=== PATIENT | female | born 1955 | race Caucasian/White ===

== ENCOUNTER 2017-10-27 12:24 | Inpatient (IN) | payer MEDICAID ==
[~2017-10-27] VITALS: Ht 165.1 cm; Wt 61.2 kg
--- NOTE | 2017-10-27 14:10 | NUR ---
MS RN OPENING NOTES PATIENT ARRIVED TO THE UNIT IN NO APPARENT DISTRESS. BEDSIDE RAILS ARE UPX2. BED IS LOCKED AND LOWERED. VITAL SIGNS ARE WNL. CALL LIGHT IS WITHIN REACH. ID BAND WAS PLACED. IV IS INTACT AND PATENT. MED RECON NURSE WAS CALLED TO THE FLOOR. MYRIAM MAN WAS INFORMED THAT PATIENT IS IN THE UNIT. WILL CONTINUE TO MONITOR.
--- NOTE | 2017-10-27 14:20 | NUR ---
NOTIFIED MYRIAM MAN THAT PATIENT HAS ARRIVED TO THE UNIT. MYRIAM WILL SEE THE PATIENT.
[2017-10-27] MEDS ORDERED: FURO20TA4 PO (14:31)
[2017-10-27] MEDS ORDERED: ATOR40TA PO (14:31)
[2017-10-27] MEDS ORDERED: AMLO10TA2 PO (14:31)
[2017-10-27] MEDS ORDERED: INSU100I26 SQ (14:31)
[2017-10-27] MEDS ORDERED: LISI-603 PO (14:31)
[2017-10-27] MEDS ORDERED: ASPI-1152 PO (14:31)
[2017-10-27] MEDS ORDERED: Z GUARD REMEDY 2 OZ OINT TP PRN (15:30)
[2017-10-27] MEDS ORDERED: MORPHINE SULFATE INJ 4 MG/ML DISP.SYRIN IV PRN (15:30)
[2017-10-27] MEDS ORDERED: MAG HYDROX/AL HYDROX/SIMETH 30 ML UDC PO PRN (15:30)
[2017-10-27] MEDS ORDERED: ACETAMINOPHEN 325 MG TABLET PO PRN (15:30)
[2017-10-27] MEDS ORDERED: MAGNESIUM HYDROXIDE 30 ML UDC PO PRN (15:30)
[2017-10-27] MEDS ORDERED: NITROGLYCERIN 0.4 MG/TAB BOTTLE SL PRN (15:30)
[2017-10-27] MEDS ORDERED: DEXTROSE 50%-WATER 50 ML DISP.SYRIN IV PRN (15:30)
[2017-10-27] MEDS ORDERED: ONDANSETRON HCL/PF 4 MG/2 ML VIAL IVP PRN (15:30)
[2017-10-27 16:00] VITALS: BP 142/65
[2017-10-27 16:55] LABS: BASOPHILS # (AUTO) 0.1 /CMM (0.0-0.2); BASOPHILS % (AUTO) 0.9 % (0.0-2.0); EOSINOPHILS # (AUTO) 0.7 /CMM (0.0-0.7); EOSINOPHILS % (AUTO) 12.6 % (0.0-6.0); HEMATOCRIT 22 % (33-45); HEMOGLOBIN 7.4 g/dL (11.5-14.8); LYMPHOCYTES # (AUTO) 1.4 /CMM (0.8-4.8); LYMPHOCYTES % (AUTO) 23.1 % (20.0-44.0); MEAN CORPUSCULAR HEMOGLOBIN 32 PG (26.0-33.0); MEAN CORPUSCULAR HGB CONC 33 g/dl (31.0-36.0); MEAN CORPUSCULAR VOLUME 95 fL (82-100); MONOCYTES # (AUTO) 0.5 /CMM (0.1-1.30); NEUTROPHILS # (AUTO) 3.2 /CMM (1.8-8.9); NEUTROPHILS % (AUTO) 55.4 % (43.0-81.0); PLATELET COUNT (AUTO) 219 /CMM (150-450); RDW COEFFICIENT OF VARIATION 12.9 (11.5-15.0); RED BLOOD CELL COUNT(AUTO) 2.32 MIL/uL (4.0-5.2); WHITE BLOOD COUNT (AUTO) 5.9 K/uL (4.3-11.0)
[2017-10-27 17:13] LABS: CALCIUM, SERUM 8.7 mg/dL (8.5-10.1); CARBON DIOXIDE 21 mmol/L (21-32); CHLORIDE 108 mmol/L (98-107); CREATININE 2.3 mg/dL (0.6-1.3); GLUCOSE 140 mg/dL (74-106); POTASSIUM 4.5 mmol/L (3.5-5.1); SODIUM SERUM 140 mmol/L (136-145); UREA NITROGEN, BLOOD 37 mg/dL (7-18)
[2017-10-27 17:18] LABS: ALANINE AMINOTRANSFERASE 44 U/L (12-78); ALKALINE PHOSPHATASE 157 U/L (46-116); ASPARTATE AMINOTRANSFERASE 18 U/L (15-37); BILIRUBIN,TOTAL 0.4 mg/dL (0.2-1.0); MAGNESIUM 2.5 mg/dL (1.8-2.4); PHOSPHORUS 4.8 mg/dL (2.5-4.9); TOTAL PROTEIN, SERUM 6.7 g/dL (6.4-8.2)
[2017-10-27 17:20] LABS: TROPONIN I < 0.017 ng/mL (0.00-0.056)
[2017-10-27 17:25] LABS: CHOLESTEROL 156 mg/dL (<200); HDL CHOLESTEROL 64 mg/dL (40-60); LDL 63 mg/dL (0-99); THYROID STIMULATING HORMONE 3.288 uIU/mL (0.358-3.74); TRIGLYCERIDES 154 mg/dL (30-150)
[2017-10-27] MEDS: CEFTRIAXONE 1 G in IV NS 0.9% 50 ML IV SCH (17:33)
[2017-10-27] MEDS: BLOOD SUGAR DIAGNOSTIC 1 EACH STRIP IN SCH ×2 (17:42→21:32)
[2017-10-27] MEDS: INSULIN REGULAR, HUMAN 100 UNIT/ML 3 ML VIAL SQ PRN (17:44)
[2017-10-27] MEDS: AZITHROMYCIN 500 MG in IV D5W 250 ML IV SCH (18:22)
[2017-10-27] MEDS: HYDROCODONE/APAP 5/325MG 1 EACH TABLET PO PRN (18:28)
[2017-10-27 18:36] LABS: BAND % (MANUAL) 1 % (0.0-5.0); EOSINOPHILS % (MANUAL) 11 % (0-4); LYMPHOCYTES % (MANUAL) 17 % (16-48); MONOCYTES % (MANUAL) 11 % (0-11.0); NEUTROPHILS % (MANUAL) 59 (42-76); REACTIVE LYMPHOCYTES 1 % (0-0)
--- NOTE | 2017-10-27 18:37 | NUR ---
MS RN CLOSING NOTES PATIENT IS ALERT AND ORIENTED X4. IN NO APPARENT DISTRESS. BEDSIDE RAILS ARE UPX2. BED IS LOCKED AND LOWERED. CALL LIGHT IS WITHIN REACH. ALL NEEDS WERE MET. WILL ENDORSE CARE TO PET RESORT CONCIERGE NURSE FOR TIFFANY.
--- NOTE | 2017-10-27 19:30 | NUR ---
RN OPEN NOTES RECEIVED PATIENT RESTING IN BED, EASILY AROUSABLE. A/O X4. NO SIGNS OF DISTRESS OR DISCOMFORT. BREATHING EVEN AND UNLABORED. ON 2LPM O2 VIA NC. ON TELE MONITORING WITH SR 81 NOTED. IV ACCESS IN L HAND, PATENT AND INTACT, NO SIGNS OF REDNESS OR INFILTRATION. HAS F/C INTACT, WITH CLEAR YELLOW FLUID NOTED. BED IN LOW LOCKED POSITION WITH SIDE RAILS X2. CALL LIGHT WITHIN REACH. WILL CONTINUE TO MONITOR.
[2017-10-27 20:00] VITALS: BP 126/70
[2017-10-27] MEDS: ATORVASTATIN 40 MG TABLET PO SCH (21:33)
[2017-10-27] MEDS: INSULIN GLARGINE, 100 UNIT/ML CARTRIDGE SQ SCH (21:36)
[2017-10-28] VITALS (7 sets, daily range): BP systolic 134–152; BP diastolic 60–83
[2017-10-28] MEDS: BLOOD SUGAR DIAGNOSTIC 1 EACH STRIP IN SCH ×4 (06:23→21:14)
--- NOTE | 2017-10-28 06:57 | NUR ---
RN CLOSING NOTES PATIENT AWAKE IN BED. A/O X4. NO SIGNS OF DISTRESS OR DISCOMFORT. BREATHING EVEN AND UNLABORED. ON 2LPM O2 VIA NC. ON TELE MONITORING WITH SR 77 NOTED. IV ACCESS IN L HAND, PATENT AND INTACT, NO SIGNS OF REDNESS OR INFILTRATION. HAS F/C INTACT, WITH CLEAR YELLOW FLUID NOTED. ALL NEEDS MET. NO SIGNIFICANT CHANGES THROUGH THE NIGHT. BED IN LOW LOCKED POSITION WITH SIDE RAILS X2. CALL LIGHT WITHIN REACH. WILL ENDORSE TO AM SHIFT FOR TIFFANY.
[2017-10-28] MEDS: FUROSEMIDE 20 MG TABLET PO SCH (08:29)
[2017-10-28] MEDS: ASPIRIN EC 81 MG TABLET.DR PO SCH (08:29)
[2017-10-28] MEDS: AMLODIPINE BESYLATE 10 MG TABLET PO SCH (08:29)
[2017-10-28 08:59] LABS: CALCIUM, SERUM 8.5 mg/dL (8.5-10.1); CREATININE 2.2 mg/dL (0.6-1.3); POTASSIUM 4.5 mmol/L (3.5-5.1)
[2017-10-28 09:14] LABS: BASOPHILS # (AUTO) 0.1 /CMM (0.0-0.2); BASOPHILS % (AUTO) 0.9 % (0.0-2.0); EOSINOPHILS # (AUTO) 0.9 /CMM (0.0-0.7); EOSINOPHILS % (AUTO) 14.8 % (0.0-6.0); HEMATOCRIT 23 % (33-45); HEMOGLOBIN 7.8 g/dL (11.5-14.8); LYMPHOCYTES # (AUTO) 1.4 /CMM (0.8-4.8); LYMPHOCYTES % (AUTO) 23.8 % (20.0-44.0); MEAN CORPUSCULAR HEMOGLOBIN 33 PG (26.0-33.0); MEAN CORPUSCULAR HGB CONC 34 g/dl (31.0-36.0); MEAN CORPUSCULAR VOLUME 95 fL (82-100); MONOCYTES # (AUTO) 0.6 /CMM (0.1-1.30); MONOCYTES % (AUTO) 9.5 % (2.0-12.0); PLATELET COUNT (AUTO) 227 /CMM (150-450); RDW COEFFICIENT OF VARIATION 12.8 (11.5-15.0); RED BLOOD CELL COUNT(AUTO) 2.39 MIL/uL (4.0-5.2); WHITE BLOOD COUNT (AUTO) 5.9 K/uL (4.3-11.0)
[2017-10-28 09:33] LABS: APPEARANCE,URINE CLEAR (CLEAR); BILIRUBIN,URINE NEGATIVE (NEGATIVE); BLOOD, URINE 1+ Ery/uL (NEGATIVE); COLOR,URINE YELLOW (YELLOW); KETONES,URINE NEGATIVE (NEGATIVE); LEUKOCYTE ESTERASE ,URINE TRACE (NEGATIVE); NITRITE, URINE NEGATIVE (NEGATIVE); PROTEIN,URINE 2+ mg/dl (NEGATIVE); UGLUCOSE NEGATIVE (NEGATIVE); UROBILINOGEN,URINE 0.2 EU/dL (0.2)
[2017-10-28 09:53] LABS: BACTERIA,URINE Rare /HPF (None Seen); SQUAMOUS EPITHELIAL CELL,UR Few /HPF (None Seen)
[2017-10-28 10:02] LABS: CREATININE, URINE 44.1 MG/DL (30.0-125.0)
[2017-10-28] MEDS ORDERED: EPOETIN ALFA (20,000 UNIT) 20,000 UNIT/ML VIAL SQ ONE (11:00)
--- NOTE | 2017-10-28 11:12 | NUR ---
WOUND CARE CONSULT: PT PRESENTS WITH RT DISTAL TOE CALLUS, PRESENT ON ADMISSION. NO DRAINAGE, REDNESS OR TENDERNESS NOTED. PT IS INDEPENDENT WITH BED MOBILITY AND CONTINENT OF STOOL. PT HAS CERVANTES CATH. CURRENT PRAFUL SCORE IS 21. WILL SEE PRN. Addendum: 10/28/17 at 1114 by ZIYAD RUTLEDGE WNDNU Amended: Links added.
[2017-10-28 12:58] LABS: EOSINOPHILS % (MANUAL) 11 % (0-4); LYMPHOCYTES % (MANUAL) 27 % (16-48); MONOCYTES % (MANUAL) 6 % (0-11.0); NEUTROPHILS % (MANUAL) 56 (42-76)
[2017-10-28] MEDS ORDERED: FUROSEMIDE 20 MG/2 ML VIAL IV ONE (13:00)
[2017-10-28 15:06] LABS: APPEARANCE,URINE CLEAR (CLEAR); BILIRUBIN,URINE NEGATIVE (NEGATIVE); BLOOD, URINE 1+ Ery/uL (NEGATIVE); COLOR,URINE YELLOW (YELLOW); KETONES,URINE NEGATIVE (NEGATIVE); LEUKOCYTE ESTERASE ,URINE NEGATIVE (NEGATIVE); NITRITE, URINE NEGATIVE (NEGATIVE); PROTEIN,URINE 2+ mg/dl (NEGATIVE); UGLUCOSE NEGATIVE (NEGATIVE); UROBILINOGEN,URINE 0.2 EU/dL (0.2)
[2017-10-28 15:18] LABS: BACTERIA,URINE Rare /HPF (None Seen); RBC,URINE 0-2 /HPF (0-2); SQUAMOUS EPITHELIAL CELL,UR Rare /HPF (None Seen)
[2017-10-28 15:32] LABS: CREATININE, URINE 22.2 MG/DL (30.0-125.0); URINE TOTAL PROTEIN 122.9 mg/dL (0-11.9)
[2017-10-28] MEDS: CEFTRIAXONE 1 G in IV NS 0.9% 50 ML IV SCH (15:46)
[2017-10-28] MEDS: INSULIN REGULAR, HUMAN 100 UNIT/ML 3 ML VIAL SQ PRN ×2 (16:41→21:17)
[2017-10-28] MEDS: AZITHROMYCIN 500 MG in IV D5W 250 ML IV SCH (16:41)
[2017-10-28 17:38] LABS: EOSINOPHIL,URINE None Seen
--- NOTE | 2017-10-28 19:00 | NUR ---
NO SIGNIFICANT CHANGES IN PATIENT CONDITION THROUGHOUT THE SHIFT. NO SOB OR DISTRESS NOTED AT THIS TIME. PATIENT DENIES SIGNIFICANT PAIN. HEART RATE SR IN THE 80'S. BED IN A LOW POSITION, CALL LIGHT WITHIN PATIENT REACH. WILL ENDORSE FOR TIFFANY.
--- NOTE | 2017-10-28 19:30 | NUR ---
ASSOCIATE DIRECTOR OF BIOSTATISTICS OPENING NOTES RECEIVED PT IN BED, ALERT, AWAKE, VERBALLY RESPONSIVE, ON O2 VIA N/C AT 2L/MIN, RESPIRATIONS EVEN, UNLABORED. NSR 72. IV SITE LT HAND INTACT, PATENT. DENIES ANY PAIN OR DISCOMFORT AT THIS TIME. CALL LIGHT WITHIN REACH, BED LOCKED IN LOWEST POSITION. ATTENDED ALL NEEDS. WILL CONTINUE TO MONITOR ACCORDINGLY.
[2017-10-28] MEDS: ATORVASTATIN 40 MG TABLET PO SCH (21:11)
[2017-10-28] MEDS: INSULIN GLARGINE, 100 UNIT/ML CARTRIDGE SQ SCH (21:17)
[2017-10-29] VITALS: BP 126/55
[2017-10-29 04:00] VITALS: BP 139/61
[2017-10-29] MEDS: BLOOD SUGAR DIAGNOSTIC 1 EACH STRIP IN SCH ×2 (06:00→12:45)
--- NOTE | 2017-10-29 06:42 | NUR ---
PIE BAKER CLOSING NOTES PT IN BED RESTING COMFORTABLY, ON O2 VIA N/C RESPIRATIONS EVEN, UNLABORED, NO APPARENT DISTRESS NOTED. DENIES ANY PAIN OR DISCOMFORT AT THIS TIME. IV SITE LT HAND INTACT, PATENT. CALL LIGHT WITHIN REACH, BED LOCKED IN LOWEST POSITION. KEPT CLEAN AND COMFORTABLE. ATTENDED ALL NEEDS. WILL CONTINUE TO MONITOR ACCORDINGLY.
[2017-10-29 07:00] LABS: BASOPHILS # (AUTO) 0.1 /CMM (0.0-0.2); EOSINOPHILS # (AUTO) 0.9 /CMM (0.0-0.7); HEMATOCRIT 23 % (33-45); LYMPHOCYTES # (AUTO) 1.5 /CMM (0.8-4.8); LYMPHOCYTES % (AUTO) 26.2 % (20.0-44.0); MEAN CORPUSCULAR HEMOGLOBIN 33 PG (26.0-33.0); MEAN CORPUSCULAR HGB CONC 34 g/dl (31.0-36.0); MEAN CORPUSCULAR VOLUME 95 fL (82-100); MONOCYTES # (AUTO) 0.5 /CMM (0.1-1.30); MONOCYTES % (AUTO) 8.9 % (2.0-12.0); NEUTROPHILS # (AUTO) 2.8 /CMM (1.8-8.9); NEUTROPHILS % (AUTO) 48.9 % (43.0-81.0); PLATELET COUNT (AUTO) 239 /CMM (150-450); RDW COEFFICIENT OF VARIATION 12.8 (11.5-15.0); RED BLOOD CELL COUNT(AUTO) 2.46 MIL/uL (4.0-5.2); WHITE BLOOD COUNT (AUTO) 5.8 K/uL (4.3-11.0)
[2017-10-29 07:20] LABS: ALBUMIN 2.8 g/dL (3.4-5.0); BILIRUBIN,TOTAL 0.3 mg/dL (0.2-1.0); CALCIUM, SERUM 8.4 mg/dL (8.5-10.1); CREATININE 2.2 mg/dL (0.6-1.3); MAGNESIUM 2.4 mg/dL (1.8-2.4); PHOSPHORUS 5.3 mg/dL (2.5-4.9); POTASSIUM 4.6 mmol/L (3.5-5.1); TOTAL PROTEIN, SERUM 6.4 g/dL (6.4-8.2)
--- NOTE | 2017-10-29 07:30 | NUR ---
MS/RN Patient received Patient received from shift superintendent caustic cresylate. All needs attended, call light within reach, will continue to monitor and ensure safety
[2017-10-29] MEDS: ASPIRIN EC 81 MG TABLET.DR PO SCH (08:15)
[2017-10-29] MEDS: AMLODIPINE BESYLATE 10 MG TABLET PO SCH (08:15)
[2017-10-29] MEDS: HYDROCODONE/APAP 5/325MG 1 EACH TABLET PO PRN (08:15)
[2017-10-29] MEDS: FUROSEMIDE 20 MG TABLET PO SCH (08:15)
[2017-10-29 08:23] VITALS: BP 134/48
--- NOTE | 2017-10-29 09:45 | NUR ---
MS/RN Medications Morning medications administered as ordered.
--- NOTE | 2017-10-29 09:55 | NUR ---
MS/RN Labs Morning labs reviewed: -H&H 04/17 -BUN 38 -Creat 2.2
[2017-10-29] MEDS ORDERED: AMOX875T2 PO (14:28)
[2017-10-29] MEDS ORDERED: AZIT250T PO (14:28)
--- NOTE | 2017-10-29 15:00 | NUR ---
MS/RN Lora removed Lora catheter removed.
--- NOTE | 2017-10-29 15:28 | NUR ---
MS/RN S/B Edil Quevedo [employer] Seen by [employer] - patient to be discharged home today with appointment to follow up with bone density technician in three days. (patient already has this appointment).
[2017-10-29] MEDS ORDERED: AZITHROMYCIN 250 MG TABLET PO SCH (17:00)
--- NOTE | 2017-10-29 18:15 | NUR ---
MS/switchboard operator helper Patient discharged to home in stable condition. Heplock and name bands removed. Exit care signed by , provided with copy of this along with medical record. Escorted to main lobby by FAINA.
[2017-10-30 11:18] LABS: *SPE A/G RATIO 1.4 (0.7-1.7); *SPE ALBUMIN 3.3 g/dL (2.9-4.4); *SPE ALPHA-1-GLOBULIN 0.2 g/dL (0.0-0.4); *SPE ALPHA-2-GLOBULIN 0.8 g/dL (0.4-1.0); *SPE BETA GLOBULIN 0.7 g/dL (0.7-1.3); *SPE GLOBULIN, TOTAL 2.3 g/dL (2.2-3.9); *SPE M-SPIKE Not Observed g/dL (Not Observed); *SPEGAMMA GLOBULIN 0.5 g/dL (0.4-1.8)
[2017-10-30 14:27] LABS: PTH, INTACT 127 pg/mL (15-65)
== END 2017-10-29 18:00 | disposition home or self-care (01) | DRG 194 ==
LOC: TELE 13:31 → MED 10-29 16:49
PROVIDERS: ADMIT Nurse Practitioner Acute Care; ATTEND Nurse Practitioner Acute Care
DX: I11.0 Hypertensive heart disease with heart failure (principal); J96.01 Acute respiratory failure with hypoxia; J18.9 Pneumonia, unspecified organism; N17.9 Acute kidney failure, unspecified; E11.42 Type 2 diabetes mellitus with diabetic polyneuropathy; E11.9 Type 2 diabetes mellitus without complications; D64.9 Anemia, unspecified; I24.9 Acute ischemic heart disease, unspecified; N13.30 Unspecified hydronephrosis; I50.9 Heart failure, unspecified; N39.0 Urinary tract infection, site not specified; Z83.3 Family history of diabetes mellitus; Z82.49 Family history of ischemic heart disease and other diseases of the circulatory system; Z80.3 Family history of malignant neoplasm of breast; E78.5 Hyperlipidemia, unspecified; Z79.4 Long term (current) use of insulin; Z79.82 Long term (current) use of aspirin; Z79.899 Other long term (current) drug therapy; L84 Corns and callosities
CPT/HCPCS: 36415; 71045-TC; 80048-TC; 80053-TC; 80061-TC; 81000-TC; 82550-TC; 82570-TC; 82728-TC; 82962-TC; 83540-TC; 83735-TC; 83970; 84100-TC; 84155; 84155-TC; 84165; 84300-TC; 84443-TC; 84484-TC; 85025-TC; 87081-TC; 87086-TC; 93307-TC; 94799-TC; A4216; J0456; J0696; J0885; J1815; J1940; J7050; J7060; Z7610